=== PATIENT | female | born 1945 | race Caucasian/White ===

== ENCOUNTER 2018-01-20 10:50 | Day surgery (SDC) | payer MEDICARE, OTHER ==
[~2018-01-20] VITALS: Ht 152.4 cm; Wt 62.6 kg
[2018-01-20] MEDS ORDERED: LEVOTHYROXINE75 MCG PO (11:12)
[2018-01-20] MEDS ORDERED: LOSARTAN POTASS50 MG PO (11:13)
[2018-01-20] MEDS ORDERED: SIMVASTATIN10 MG PO (11:13)
[2018-01-20] MEDS ORDERED: TRAZODONE HCL50 MG PO (11:14)
--- NOTE | 2018-01-20 14:22 | NUR ---
01/20/18 1421 Ana Rolon 1417 PATIENT ARRIVES TO PACU AWAKE. ALERT AND ORIENTED X3 , RESP EVEN AND UNLABORED, NC AT 3 LITERS. TURNED OXYGEN OFF AFTER ARRIVING, SATS 100% ON ROOM AIR. PATIENT DENIES PAIN OR NAUSEA.
--- NOTE | 2018-01-21 10:03 | OR ---
[facility] [address] [place], [place] [address] Signed DATE OF OPERATION: 01/20/2018 SURGEON: Teofilo Yost MD PREOPERATIVE DIAGNOSES: Heme-positive stool, enigmatic epigastric pain, and long-standing steroid use. POSTOPERATIVE DIAGNOSIS: No evidence of ulcer of stomach or duodenum. PROCEDURE: Esophagogastroduodenoscopy with biopsy. ANESTHESIA: Intravenous sedation, fentanyl 100 mcg, Versed 2 mg. 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 She is now a patient of Dr. Clayton. She has been diagnosed in the past 2 years with polymyalgia rheumatica and has had variable levels of steroid use for management of that problem. She currently is on a very low dose of 2.5 mg prednisone every other day. She has been noted to have heme-positive stool. She was taking Aleve, but discontinued it. She has had no actual gross blood per rectum or hematemesis. She has taken Tums for this, but no other medications. She has had at least 2 episodes of very severe epigastric pain, lasting 24 hours or more. 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 She has undergone colonoscopy by me in the past in 2012. She is admitted at this time to undergo upper endoscopy and a strong probability is she has peptic disease accounting for her heme-positive stool. The risks of bleeding, infection, and perforation were reviewed with her. She understands and wished to proceed. FINDINGS: There is no lesion to account for her anemia. She did have a normal esophagus and flap valve. The stomach may have had mild chronic inflammation, but certainly no ulceration. The pylorus was normal and the duodenum was normal. Biopsies were obtained to assess for celiac disease and occult peptic disease. DESCRIPTION OF PROCEDURE: The patient was brought to the endoscopy suite and given topical Hurricaine spray and Electronically Signed By: TEOFILO YOST MD 01/21/18 1003 PATIENT NAME: KANNAN CHAO OPERATIVE REPORT DATE OF : 43 REPORT #: [id number] PHYSICIAN: TEOFILO YOST MD PCP: ANTELMO CLAYTON MD REPORT IS CONFIDENTIAL AND NOT TO BE RELEASED WITHOUT AUTHORIZATION [facility] [address] [place], [place] [address] Signed hypopharyngeal anesthesia and placed in lateral decubitus position. She was given intravenous sedation to the point of slurred speech and nystagmus. Olympus video upper endoscope was passed in the hypopharynx. Vocal cords appeared normal. Scope was advanced to the esophagus without problem throughout its length, it was normal. Scope was passed through the stomach, which was insufflated with air. Rugal folds appeared reasonably normal. The antrum was normal. Pylorus was normal. Scope was passed through into the duodenum, which was also normal. Biopsies were obtained of the duodenum and then withdrawn to the stomach and biopsies taken of the antrum. Retroflexed view of the stomach showed a reasonably good flap valve. No sign of ulceration. The scope was straightened and withdrawn to the distal esophagus, which looked entirely normal. Careful withdrawal of scope showed no other findings. The scope was removed. ASSESSMENT: I am somewhat surprised that peptic lesion accounting for heme-positive stool was not found. In any case, we will recommend a colonoscopy be performed in the near future to assess for the cause of heme-positive stool. MD DARSHAN Dobbins/MODL /[id number] cc: Antelmo Clayton MD Copies: ANTELMO CLAYTON MD ~ Electronically Signed By: TEOFILO YOST MD 01/21/18 1003 PATIENT NAME: KANNAN CHAO OPERATIVE REPORT DATE OF : 43 REPORT #: [id number] PHYSICIAN: TEOFILO YOST MD PCP: ANTELMO CLAYTON MD REPORT IS CONFIDENTIAL AND NOT TO BE RELEASED WITHOUT AUTHORIZATION
== END 2018-01-20 14:40 | disposition home or self-care (01) ==
LOC: DS 10:50 → OPS 10:50 → DS 12:00 → OPS 14:40
PROVIDERS: Surgery
PROC: 0DB78ZX Excision of Stomach, Pylorus, Via Natural or Artificial Opening Endoscopic, Diagnostic (ICD-10-PCS; 2018-01-20)
PROC: 0DB98ZX Excision of Duodenum, Via Natural or Artificial Opening Endoscopic, Diagnostic (ICD-10-PCS; principal; 2018-01-20 12:00)
DX: K29.50 Unspecified chronic gastritis without bleeding (principal); K29.80 Duodenitis without bleeding; M35.3 Polymyalgia rheumatica; M87.9 Osteonecrosis, unspecified; T38.0X5A Adverse effect of glucocorticoids and synthetic analogues, initial encounter; I10 Essential (primary) hypertension; E78.00 Pure hypercholesterolemia, unspecified; E03.9 Hypothyroidism, unspecified; D64.9 Anemia, unspecified; M19.90 Unspecified osteoarthritis, unspecified site; Z88.8 Allergy status to other drugs, medicaments and biological substances
CPT/HCPCS: 88305; 88342; 99153; G0500; J2250; J3010; J7120

== ENCOUNTER 2018-02-20 11:55 | Day surgery (SDC) | payer MEDICARE, OTHER ==
[~2018-02-20] VITALS: Ht 152.4 cm; Wt 62.6 kg
[~2018-02-20 11:55] MED LIST: LEVOTHYROXINE75 MCG PO; LOSARTAN POTASS50 MG PO; SIMVASTATIN10 MG PO; TRAZODONE HCL50 MG PO
--- NOTE | 2018-02-20 13:41 | NUR ---
02/20/18 1341 Maria G Starks to pacu, alert and awake, denies c/o at this time.
--- NOTE | 2018-02-21 10:32 | OR ---
[facility] [address] [place], [place] [address] Signed DATE OF OPERATION: 02/20/2018 SURGEON: Teofilo Yost MD PREOPERATIVE DIAGNOSIS: Anemia, normal upper endoscopy. POSTOPERATIVE DIAGNOSIS: Normal appearing colon. PROCEDURE PERFORMED: Total colonoscopy to the cecum. ANESTHESIA: Intravenous sedation with fentanyl 100 mcg and Versed 3 mg. INDICATIONS FOR PROCEDURE: This 73-year-old white woman is a patient of Dr. Clayton and was noted to have anemia. She had upper abdominal symptoms as well. An upper endoscopy was performed, which did show some erosive change, but no sign of actual lesion to account for bleeding particularly. On that basis, consideration for colonoscopy was made. The risk of bleeding, infection, perforation, and so forth were reviewed with her in detail. She understands and wished to proceed. FINDINGS: The prep was excellent. Complete colonoscopy was undertaken to the cecum without question. There was no sign of polyps, diverticular formation, colitis, or cancer. DESCRIPTION OF PROCEDURE: The patient was brought to the endoscopy suite temporary room #2 of the operating room itself and placed in lateral decubitus position. She was given intravenous sedation to the point of slurred speech and nystagmus under full cardiopulmonary monitoring. Digital rectal examination was found to be normal. An Olympus video colonoscope was passed in the rectum and manipulated throughout the colon ultimately intubating the cecum itself. The ileocecal valve and appendiceal orifice were normal. The scope was withdrawn from that point. Examination throughout showed no sign of polyps, diverticular formation, colitis, or cancer. Retroflex view of the rectum was normal as well. The scope was removed and the patient was taken to the recovery room in good condition. Electronically Signed By: TEOFILO YOST MD 02/21/18 1032 PATIENT NAME: KANNAN CHAO OPERATIVE REPORT DATE OF : 43 REPORT #: [id number] PHYSICIAN: TEOFILO YOST MD PCP: ANTELMO CLAYTON MD REPORT IS CONFIDENTIAL AND NOT TO BE RELEASED WITHOUT AUTHORIZATION [facility] [address] [place], [place] [address] Signed CONCLUDING DIAGNOSIS: Normal colon. No evidence of lesion to account for anemia. ASSESSMENT: Uncertain cause for anemia. The upper endoscopy and colonoscopy were unrevealing as to a reasonable source of anemia. Whether this is a production related anemia or blood loss related anemia or other type anemia is uncertain. We will obtain a CBC today with carbon copy to be forwarded to Dr. Clayton. She may require hematologic evaluation depending on whether or not she remains anemic. MD DRASHAN Dobbins/CECILEL /[id number] cc: Antelmo Clayton MD Copies: ANTELMO CLAYTON MD ~ Electronically Signed By: TEOFILO YOST MD 02/21/18 1032 PATIENT NAME: KANNAN CHAO OPERATIVE REPORT DATE OF : 43 REPORT #: [id number] PHYSICIAN: TEOFILO YOST MD PCP: ANTELMO CLAYTON MD REPORT IS CONFIDENTIAL AND NOT TO BE RELEASED WITHOUT AUTHORIZATION
== END 2018-02-20 13:59 | disposition home or self-care (01) ==
LOC: OPS 11:55 → DS 14:00 → OPS 14:00
PROVIDERS: Surgery
PROC: 0DJD8ZZ Inspection of Lower Intestinal Tract, Via Natural or Artificial Opening Endoscopic (ICD-10-PCS; principal; 2018-02-20 14:00)
DX: D64.9 Anemia, unspecified (principal); R19.5 Other fecal abnormalities; M19.90 Unspecified osteoarthritis, unspecified site; E78.00 Pure hypercholesterolemia, unspecified; I10 Essential (primary) hypertension; E03.9 Hypothyroidism, unspecified; M35.3 Polymyalgia rheumatica; R10.13 Epigastric pain; M87.9 Osteonecrosis, unspecified; Z88.8 Allergy status to other drugs, medicaments and biological substances; Z98.890 Other specified postprocedural states
CPT/HCPCS: 99153; G0500; J2250; J3010